=== PATIENT | female | born 1940 | race Caucasian/White ===

== ENCOUNTER → 2016-11-09 | Outpatient (CLI) | payer BC ==
--- NOTE | 2016-11-09 16:43 | RAD ---
Indication left-sided carotid stenosis. Grayscale color Doppler and spectral imaging was performed. The examination was targeted to the carotid bifurcations. No prior imaging is available. On the right there is some plaquing at the bifurcation. The color Doppler images do not suggest significant turbulence. The common carotid waveform and velocities are normal. The external carotid has a normal appearance. The internal carotid waveform and velocities are normal. The vertebral is patent and demonstrates normal directional flow. On the left there is also some plaquing. Soft plaque is seen in the common carotid artery. The color Doppler images do not suggest significant turbulence. The common carotid waveform and velocities are normal. The external carotid has a normal appearance. The internal carotid waveform and velocities are normal. The vertebral is patent and demonstrates normal directional flow. IMPRESSION: Atherosclerotic plaquing at the carotid bifurcations. No evidence of hemodynamically significant stenosis. Stenosis 0-50%. Note: Stenosis calculations for CT, MR and conventional angiography are based upon determination of the distal ICA diameter in accordance with the NASCET methodology. Stenosis calculations for doppler studies are derived from validated velocity criteria which are known to correlate with NASCET methodology of determining stenosis.
== END | disposition home or self-care (01) ==
LOC: US 15:56
PROVIDERS: ATTEND Psychiatry & Neurology Neurology
DX: I65.22 Occlusion and stenosis of left carotid artery (principal)
CPT/HCPCS: 93880

== ENCOUNTER → 2017-02-20 | Outpatient (CLI) | payer BC ==
[~2017-02-20] MED LIST: GADOBUTROL 7.5 MMOL/7.5 ML VIAL IV ONE
--- NOTE | 2017-02-20 16:27 | RAD ---
INDICATION: Headaches and confusion. Radiation treatment for AVM in 2000. TECHNIQUE: Sagittal T1, axial T1, axial T2, axial FLAIR, axial T2 gradient, diffusion imaging with ADC map, and 3 plane postcontrast imaging was performed. The patient received 6 mL of intravenous Gadavist without complication. No comparison MRI is available at the time of dictation. FINDINGS: Blush of enhancement in the medial right temporal lobe is noted, with slight associated FLAIR hyperintensity. Appearance is not specific, correlate with location of previous AVM. Comparison to any priors would be of benefit. There is prominence of the ventricles and sulci. Areas of probable small vessel ischemic disease are noted throughout the supratentorial white matter and in the aysha. There is no acute intracranial hemorrhage or extra-axial fluid collection. There is no blooming artifact in the right temporal lobe associated with the lesion. There are a few prominent flow voids in this region on T2 imaging. Central intracranial flow voids are preserved. There is minimal mucosal thickening in the paranasal sinuses. There is a small amount of nonspecific fluid in the optic sheaths. No additional area of pathologic enhancement is identified. IMPRESSION: 1. Patchy blush of enhancement with associated FLAIR hyperintensity and potential associated flow voids within the medial right temporal lobe, may be secondary to this patient's known AVM. Correlation with any prior imaging would be of benefit, alternatively consider short-term follow-up to exclude neoplastic cause for this enhancing lesion. 2. Brain parenchymal volume loss and probable small vessel ischemic disease. Electronically signed by: Aamir Álvarez MD (02/20/2017 4:24 PM) [id number]
== END | disposition home or self-care (01) ==
LOC: MRI 14:17
PROVIDERS: ATTEND Psychiatry & Neurology Neurology
DX: G43.001 Migraine without aura, not intractable, with status migrainosus (principal); R41.0 Disorientation, unspecified
CPT/HCPCS: 70553; A9585

== ENCOUNTER → 2017-09-06 | Outpatient (CLI) | payer BC ==
[2017-09-06 15:05] LABS: CREATININE 1.4 mg/dL (0.6-1.0); GFR 36.6
[2017-09-06 15:05] LABS: BLOOD UREA NITROGEN 17 mg/dL (7-20)
== END | disposition home or self-care (01) ==
LOC: MRI 14:17
DX: G43.001 Migraine without aura, not intractable, with status migrainosus (principal); Q27.30 Arteriovenous malformation, site unspecified
CPT/HCPCS: 36415; 70544; 70551; 82565; 84520

== ENCOUNTER → 2018-01-31 | Outpatient (CLI) | payer BC ==
[~2018-01-31] MED LIST changes: +CONTRAST GIVEN. MC; -GADOBUTROL 7.5 MMOL/7.5 ML VIAL IV ONE
[2018-01-31 09:15] LABS: CREATININE 0.9 mg/dL (0.6-1.0); GFR 60.9
[2018-01-31 09:15] LABS: BLOOD UREA NITROGEN 12 mg/dL (7-20)
[2018-01-31] MEDS: IOHEXOL 240 MG/ML 50ML VIAL. PO (09:57)
[2018-01-31] MEDS: IOHEXOL 300 MG/ML 100ML VIAL. IV (09:57)
== END | disposition home or self-care (01) ==
LOC: CT 08:32
DX: N94.89 Other specified conditions associated with female genital organs and menstrual cycle (principal); J47.9 Bronchiectasis, uncomplicated
CPT/HCPCS: 36415; 74177; 82565; 84520; Q9966; Q9967